=== PATIENT | female | born 1995 | race Two or more races ===

== ENCOUNTER 2016-02-17 07:05 | Inpatient (IN) | payer OTHER ==
[2016-02-17] VITALS (23 sets, daily range): BP systolic 81–117; BP diastolic 45–76
[~2016-02-17] VITALS: Ht 167.6 cm; Wt 69.8 kg
[~2016-02-17 07:05] MED LIST: AMOXICILLIN500 M1 PO; DEPO-PROVER150 MG/ML IM; ENDOCET 5-3251 EACH PO; FIORICET 50-301 EACH PO; FLEXERIL10 MG PO; HYDROCODON-ACE1 EAC7 PO; IBUPROFEN800 MG PO; MOTRIN800 MG PO; NAPROSYN500 MG PO; NOHOMEMEDS; PERCOCET 5/31 TABLET PO; PRENATAL TABLE1 EAC3 PO; PROCARDIA XL30 MG PO; PROCARDIA10 MG PO; PROGESTERONE200 MG VG; TORADOL10 MG PO; ZOFRAN4 MG PO
[2016-02-17 09:14] LABS: EOSINOPHIL (%) 0.3 % (0-5); HEMATOCRIT 30.9 % (36.0-46.0); IMMATURE GRANULOCYTE (%) 0.3 % (0.0-0.7); MCV 84.4 FL (83-99); MEAN PLAT.VOLUME 9.8 uM^3 (9.5-12.4); MONOCYTE (%) 6.5 % (3-12); MONOCYTE COUNT 0.6 K/uL (0-0.8); NEUTROPHIL (%) 69.7 % (45-76); PLATELET COUNT 192 K/uL (156-360); RBC DIS.WIDTH-CV 13.1 % (11.8-14.6); RED BLOOD COUNT 3.66 M/uL (3.80-5.20); WHITE BLOOD COUNT 8.7 K/uL (4.1-10.2)
[2016-02-17 13:06] LABS: METH RESISTANT S AUREUS PCR NEGATIVE (NEGATIVE)
[2016-02-17 13:08] LABS: PROBE CHECK PASS; SPECIMEN PROCESSING CONTROL PASS
[2016-02-17 13:46] LABS: AMPHETAMINES QUANT VALUE 0 NG/ML; BARBITUATES QUANT VALUE 0 NG/ML; BENZODIAZEPINES QUANT VALUE 0 NG/ML; BENZODIAZEPINES, URINE SCREEN Negative (200 ng/mL); OPIATES QUANTITATIVE VALUE 0 NG/ML; PHENCYCLIDINE QUANT VALUE 0 NG/ML
[2016-02-18] VITALS (21 sets, daily range): BP systolic 87–118; BP diastolic 51–73
[2016-02-18] MEDS ORDERED: IBUPROFEN800 MG PO (13:28)
[2016-02-19 07:18] VITALS: BP 118/61
[2016-02-20 07:37] VITALS: BP 113/81
== END 2016-02-20 15:16 | disposition home or self-care (01) | DRG 775 ==
LOC: LDRP-OP 07:05 → 2WEST 07:06 → LDRP-OP 04-11 11:43
PROVIDERS: Obstetrics & Gynecology
PROC: 10E0XZZ Delivery of Products of Conception, External Approach (ICD-10-PCS; principal; 2016-02-18)
PROC: 10907ZC Drainage of Amniotic Fluid, Therapeutic from Products of Conception, Via Natural or Artificial Opening (ICD-10-PCS; principal; 2016-02-18)
PROC: 00HU33Z Insertion of Infusion Device into Spinal Canal, Percutaneous Approach (ICD-10-PCS; principal; 2016-02-18)
PROC: 3E0X3CZ (ICD-10-PCS; principal; 2016-02-18)
DX: O60.14X0 Preterm labor third trimester with preterm delivery third trimester, not applicable or unspecified (principal); O99.324 Drug use complicating childbirth; O63.9 Long labor, unspecified; O99.02 Anemia complicating childbirth; F12.90 Cannabis use, unspecified, uncomplicated; D50.9 Iron deficiency anemia, unspecified; Z3A.36 36 weeks gestation of pregnancy; Z37.0 Single live birth
CPT/HCPCS: 85025; 87641; C1755; G0378; J0290; J3010; J7050; J7120

== ENCOUNTER 2016-03-04 02:21 | Emergency (ER) | payer OTHER ==
[~2016-03-04] VITALS: Ht 167.6 cm; Wt 61.0 kg
[2016-03-04 02:39] LABS: ADD MIUA? YES; BILIRUBIN NEGATIVE; BLOOD LARGE; COLOR YELLOW ((YELLOW)); GLUCOSE (STRIP) NEGATIVE; KETONES NEGATIVE; LEUKOCYTES SMALL; NITRITE NEGATIVE; PROTEIN (STRIP) >=300; SPECIFIC GRAVITY 1.027 (1.000-1.030); UROBILINOGEN 0.2 MG/DL (0.2-1.0)
[2016-03-04 02:48] LABS: HEMATOCRIT 37.6 % (36.0-46.0); MCH 26.6 PG (29.0-34.0); MCHC 32.4 G/DL (30.0-36.0); MCV 82.1 FL (83-99); MEAN PLAT.VOLUME 9.7 uM^3 (9.5-12.4); PLATELET COUNT 302 K/uL (156-360); RBC DIS.WIDTH-CV 13.3 % (11.8-14.6); RED BLOOD COUNT 4.58 M/uL (3.80-5.20); WHITE BLOOD COUNT 6.4 K/uL (4.1-10.2)
[2016-03-04 02:53] LABS: RED BLOOD CELLS 20-30 /HPF (0-5)
[2016-03-04 02:54] LABS: CHLORIDE 105 mEq/L (99-109); POTASSIUM 3.6 mEq/L (3.7-5.4); SODIUM 140 mEq/L (136-147)
[2016-03-04 02:54] LABS: BACTERIA 1+; CASTS NONE SEEN /LPF; CRYSTALS NONE SEEN; EPITHELIAL CELLS RARE; MUCUS RARE; UCUL ADDED? NO; WHITE BLOOD CELLS 30-40 /HPF (0-5)
[2016-03-04 02:56] LABS: GLUCOSE 90 mg/dL (70-99)
[2016-03-04 02:58] LABS: ANION GAP 10 MEQ/L (2-14); TOTAL BILIRUBIN 0.5 mg/dL (0.0-1.0)
[2016-03-04 03:00] LABS: ALKALINE PHOSPHATASE 108 IU/L (3-129); GFR ESTIMATE (CALCULATED) > 59 mL/min/
[2016-03-04 03:01] LABS: UREA NITROGEN (BUN) 20 mg/dL (9-23)
[2016-03-04 03:08] LABS: QUANTITATIVE HCG 5.3 MIU/ML
[2016-03-04] MEDS ORDERED: KEFLEX500 MG PO (03:30)
[2016-03-04] MEDS ORDERED: ZOFRAN4 MG PO (03:30)
[2016-03-04 03:38] VITALS: BP 110/71
== END 2016-03-04 03:38 | disposition home or self-care (01) ==
LOC: EME 02:21 → EXP 02:21
DX: N39.0 Urinary tract infection, site not specified (principal); Z87.440 Personal history of urinary (tract) infections
CPT/HCPCS: 80053; 81003; 84702; 85027; 99281; 99284

== ENCOUNTER 2016-03-04 17:43 | Emergency (ER) | payer OTHER ==
[~2016-03-04] VITALS: Ht 167.6 cm; Wt 60.5 kg
[~2016-03-04 17:43] MED LIST changes: +KEFLEX500 MG PO
[2016-03-04 18:08] LABS: HEMATOCRIT 37.8 % (36.0-46.0); MCH 26.2 PG (29.0-34.0); MEAN PLAT.VOLUME 9.8 uM^3 (9.5-12.4); PLATELET COUNT 285 K/uL (156-360); RBC DIS.WIDTH-CV 13.2 % (11.8-14.6); RBC DIS.WIDTH-SD 38.6 % (39-53); RED BLOOD COUNT 4.61 M/uL (3.80-5.20); WHITE BLOOD COUNT 7.2 K/uL (4.1-10.2)
[2016-03-04 18:18] LABS: CHLORIDE 105 mEq/L (99-109); POTASSIUM 3.8 mEq/L (3.7-5.4); SODIUM 140 mEq/L (136-147)
[2016-03-04 18:21] LABS: GLUCOSE 103 mg/dL (70-99)
[2016-03-04 18:22] LABS: ANION GAP 11 MEQ/L (2-14)
[2016-03-04 18:23] LABS: TOTAL BILIRUBIN 0.6 mg/dL (0.0-1.0)
[2016-03-04 18:24] LABS: ALKALINE PHOSPHATASE 113 IU/L (3-129); GFR ESTIMATE (CALCULATED) > 59 mL/min/
[2016-03-04 18:25] LABS: UREA NITROGEN (BUN) 15 mg/dL (9-23)
[2016-03-04 21:44] LABS: INTER. NORMALIZED RATIO 1.1; PROTHROMBIN TIME 11.4 (9.2-11.2); PTT 27.3 (25-32)
[2016-03-04 22:57] VITALS: BP 110/73
== END 2016-03-04 22:58 | disposition short-term general hospital (02) ==
LOC: EME 17:43
DX: I82.3 Embolism and thrombosis of renal vein (principal); N39.0 Urinary tract infection, site not specified; R11.2 Nausea with vomiting, unspecified
CPT/HCPCS: 74176; 74178; 80053; 81003; 84702; 85027; 85610; 85730; 99281; 99285; J0696; J1170; J1885; J2405; J7030; J7050

== ENCOUNTER 2016-06-14 02:46 | Emergency (ER) | payer OTHER ==
[~2016-06-14] VITALS: Ht 167.6 cm; Wt 58.5 kg
[2016-06-14 03:34] LABS: HEMATOCRIT 37.2 % (36.0-46.0); MCH 28.1 PG (29.0-34.0); MCHC 32.8 G/DL (30.0-36.0); MCV 85.7 FL (83-99); MEAN PLAT.VOLUME 10.1 uM^3 (9.5-12.4); PLATELET COUNT 261 K/uL (156-360); RBC DIS.WIDTH-CV 13.5 % (11.8-14.6); RED BLOOD COUNT 4.34 M/uL (3.80-5.20); WHITE BLOOD COUNT 7.6 K/uL (4.1-10.2)
[2016-06-14 04:01] LABS: CHLORIDE 105 mEq/L (99-109); INTER. NORMALIZED RATIO 1.2; POTASSIUM 5.6 mEq/L (3.7-5.4); PTT 25.2 (25-32); SODIUM 138 mEq/L (136-147)
[2016-06-14 04:02] LABS: ADD MIUA? YES; BILIRUBIN NEGATIVE; BLOOD NEGATIVE; COLOR YELLOW ((YELLOW)); GLUCOSE (STRIP) NEGATIVE; KETONES NEGATIVE; LEUKOCYTES NEGATIVE; NITRITE NEGATIVE; PROTEIN (STRIP) 30; SPECIFIC GRAVITY 1.027 (1.000-1.030); UROBILINOGEN 0.2 MG/DL (0.2-1.0)
[2016-06-14 04:03] LABS: GLUCOSE 81 mg/dL (70-99)
[2016-06-14 04:04] LABS: ANION GAP 10 MEQ/L (2-14)
[2016-06-14 04:05] LABS: TOTAL BILIRUBIN 0.3 mg/dL (0.0-1.0)
[2016-06-14 04:07] LABS: ALKALINE PHOSPHATASE 45 IU/L (3-129); GFR ESTIMATE (CALCULATED) > 59 mL/min/
[2016-06-14 04:08] LABS: UREA NITROGEN (BUN) 16 mg/dL (9-23)
[2016-06-14 04:10] LABS: LIPASE 53 U/L (1.0-51.0)
[2016-06-14 04:16] LABS: BACTERIA NONE SEEN /HPF; EPITHELIAL CELLS RARE /HPF; MUCUS 4+ /LPF; RED BLOOD CELLS 0-5 /HPF (0-5); UCUL ADDED? NO; WHITE BLOOD CELLS 0-5 /HPF (0-5)
[2016-06-14 04:16] LABS: QUANTITATIVE HCG < 4.0 MIU/ML
[2016-06-14] MEDS ORDERED: ZOFRAN8 MG PO (05:04)
[2016-06-14 05:20] VITALS: BP 105/69
== END 2016-06-14 05:41 | disposition home or self-care (01) ==
LOC: EME 02:46
PROVIDERS: Emergency Medicine
DX: R10.31 Right lower quadrant pain (principal); N83.02 Follicular cyst of left ovary
CPT/HCPCS: 74177; 80053; 81003; 83690; 84702; 85027; 85610; 85730; 99281; 99285; J2270; J2405; J7030

== ENCOUNTER 2016-08-04 13:20 | Emergency (ER) | payer OTHER ==
[~2016-08-04] VITALS: Ht 167.6 cm; Wt 58.9 kg
[~2016-08-04 13:20] MED LIST changes: +ZOFRAN8 MG PO
[2016-08-04 14:18] LABS: HEMATOCRIT 34.7 % (36.0-46.0); MCHC 32.6 G/DL (30.0-36.0); MCV 89.2 FL (83-99); MEAN PLAT.VOLUME 9.3 uM^3 (9.5-12.4); PLATELET COUNT 293 K/uL (156-360); RBC DIS.WIDTH-CV 12.6 % (11.8-14.6); RED BLOOD COUNT 3.89 M/uL (3.80-5.20); WHITE BLOOD COUNT 6.7 K/uL (4.1-10.2)
[2016-08-04 14:30] LABS: CHLORIDE 107 mEq/L (99-109); POTASSIUM 4.2 mEq/L (3.7-5.4); SODIUM 136 mEq/L (136-147)
[2016-08-04 14:32] LABS: GLUCOSE 67 mg/dL (70-99)
[2016-08-04 14:34] LABS: ANION GAP 5 MEQ/L (2-14); TOTAL BILIRUBIN 0.6 mg/dL (0.0-1.0)
[2016-08-04 14:36] LABS: ALKALINE PHOSPHATASE 42 IU/L (3-129); GFR ESTIMATE (CALCULATED) > 59 mL/min/
[2016-08-04 14:37] LABS: UREA NITROGEN (BUN) 13 mg/dL (9-23)
[2016-08-04 15:05] LABS: QUANTITATIVE HCG 38199.3 MIU/ML
[2016-08-04 17:45] LABS: ADD MIUA? YES; BILIRUBIN NEGATIVE; BLOOD NEGATIVE; COLOR YELLOW ((YELLOW)); GLUCOSE (STRIP) NEGATIVE; KETONES NEGATIVE; LEUKOCYTES NEGATIVE; NITRITE NEGATIVE; PROTEIN (STRIP) NEGATIVE; SPECIFIC GRAVITY 1.019 (1.000-1.030); UROBILINOGEN 0.2 MG/DL (0.2-1.0)
[2016-08-04 17:59] LABS: EPITHELIAL CELLS 1+ /HPF; MUCUS RARE /LPF; RED BLOOD CELLS NONE SEEN /HPF (0-5); WHITE BLOOD CELLS 0-5 /HPF (0-5)
[2016-08-04 18:00] LABS: AMORPHOUS PHOSPHATE CRYSTALS 2+; BACTERIA 1+ /HPF; CASTS NONE SEEN /LPF; CRYSTALS PRESENT; UCUL ADDED? NO
[2016-08-04 18:09] VITALS: BP 100/70
== END 2016-08-04 18:10 | disposition home or self-care (01) ==
LOC: EME 13:20
DX: O20.0 Threatened abortion (principal); Z3A.01 Less than 8 weeks gestation of pregnancy; J45.909 Unspecified asthma, uncomplicated; Z86.718 Personal history of other venous thrombosis and embolism
CPT/HCPCS: 76801; 80053; 81003; 84702; 85027; 99281; 99284

== ENCOUNTER 2016-12-09 18:00 | Outpatient (CLI) | payer OTHER ==
[~2016-12-09] VITALS: Ht 167.6 cm; Wt 66.2 kg
[2016-12-09 18:12] VITALS: BP 123/61
[2016-12-09 20:23] LABS: CANDIDA DNA PROBE NEGATIVE; GARDNERELLA DNA PROBE POSITIVE; INTERNAL CONTROL VALID? YES
[2016-12-09] MEDS ORDERED: FLAGYL500 MG PO (21:22)
[2016-12-10 13:10] LABS: CHLAMYDIA TRACHOMATIS NEGATIVE; NEISSERIA GONORRHOEAE NEGATIVE
== END 2016-12-09 21:25 | disposition home or self-care (01) ==
LOC: LDRP-OP 18:00 → 2WEST 18:02
PROVIDERS: Nurse Practitioner; Obstetrics & Gynecology
DX: O26.872 Cervical shortening, second trimester (principal); Z3A.24 24 weeks gestation of pregnancy
CPT/HCPCS: 59025; 82731; 87480; 87491; 87510; 87591; 87660; G0378

== ENCOUNTER 2017-01-14 18:35 | Outpatient (CLI) | payer OTHER ==
[~2017-01-14] VITALS: Ht 167.6 cm; Wt 62.0 kg
[~2017-01-14 18:35] MED LIST changes: +FLAGYL500 MG PO
[2017-01-14 19:03] VITALS: BP 103/61
[2017-01-14] MEDS ORDERED: LOVENOX60 MG/0.6 SC (19:27)
[2017-01-14] MEDS ORDERED: MAKENA250 MG/1 M IM (19:28)
[2017-01-14 21:50] VITALS: BP 109/59
[2017-01-14 22:51] LABS: CANDIDA DNA PROBE NEGATIVE; GARDNERELLA DNA PROBE POSITIVE; INTERNAL CONTROL VALID? YES
== END 2017-01-15 02:55 | disposition home or self-care (01) ==
LOC: LDRP-OP 18:35 → 2WEST 18:37
PROVIDERS: Advanced Practice Midwife
DX: O60.03 Preterm labor without delivery, third trimester (principal); Z3A.29 29 weeks gestation of pregnancy
CPT/HCPCS: 59025; 76805; 76815; 82731; 87480; 87510; 87660; G0378

== ENCOUNTER 2017-02-07 17:24 | Outpatient (CLI) | payer OTHER ==
[~2017-02-07] VITALS: Ht 167.6 cm; Wt 68.9 kg
[~2017-02-07 17:24] MED LIST changes: +LOVENOX60 MG/0.6 SC; +MAKENA250 MG/1 M IM
[2017-02-07 17:33] VITALS: BP 109/68
[2017-02-07] MEDS ORDERED: PRENATAL TABLE1 EACH PO (17:38)
[2017-02-07] MEDS ORDERED: TUMS SMOOTHIES300 MG PO (17:39)
[2017-02-07] MEDS ORDERED: BENADRYL25 MG PO (17:40)
[2017-02-07 17:46] VITALS: BP 107/61
== END 2017-02-07 18:54 | disposition home or self-care (01) ==
LOC: LDRP-OP 17:24 → 2WEST 17:25 → LDRP-OP 04-11 03:18
DX: O26.893 Other specified pregnancy related conditions, third trimester (principal); Z3A.33 33 weeks gestation of pregnancy; Z86.718 Personal history of other venous thrombosis and embolism
CPT/HCPCS: 59025; G0378

== ENCOUNTER 2017-03-02 09:38 | Inpatient (IN) | payer OTHER ==
[~2017-03-02] VITALS: Ht 167.6 cm; Wt 69.9 kg
[2017-03-02] VITALS (15 sets, daily range): BP systolic 90–122; BP diastolic 53–82
[~2017-03-02 09:38] MED LIST changes: +BENADRYL25 MG PO; +PRENATAL TABLE1 EACH PO; +TUMS SMOOTHIES300 MG PO
[2017-03-02] MEDS ORDERED: ALKA-SELTZER G1 EAC1 PO (10:40)
[2017-03-02] MEDS ORDERED: TYLENOL PM EX-1 EACH PO (10:41)
[2017-03-02 11:09] LABS: BASOPHIL (%) 0.5 % (0-1); EOSINOPHIL (%) 4.4 % (0-5); EOSINOPHIL COUNT 0.4 K/uL (0-0.3); HEMATOCRIT 31.5 % (36.0-46.0); HEMOGLOBIN 9.9 G/DL (11.9-15.5); IMMATURE GRANULOCYTE (%) 0.4 % (0.0-0.7); LYMPHOCYTE (%) 21.4 % (15-42); LYMPHOCYTE COUNT 1.7 K/uL (1.0-2.8); MCH 25.4 PG (29.0-34.0); MCHC 31.4 G/DL (30.0-36.0); MCV 80.8 FL (83-99); MONOCYTE (%) 6.9 % (3-12); MONOCYTE COUNT 0.6 K/uL (0-0.8); NEUTROPHIL (%) 66.4 % (45-76); NEUTROPHIL COUNT 5.3 K/uL (1.8-6.4); PLATELET COUNT 284 K/uL (156-360); RBC DIS.WIDTH-CV 14.1 % (11.8-14.6); RBC DIS.WIDTH-SD 41.1 % (39-53); WHITE BLOOD COUNT 7.9 K/uL (4.1-10.2)
[2017-03-02 18:47] LABS: BASOPHIL (%) 0.2 % (0-1); EOSINOPHIL (%) 0 % (0-5); HEMATOCRIT 25.2 % (36.0-46.0); IMMATURE GRANULOCYTE (%) 0.6 % (0.0-0.7); LYMPHOCYTE COUNT 0.6 K/uL (1.0-2.8); MCH 25.8 PG (29.0-34.0); MCV 83.4 FL (83-99); MONOCYTE (%) 1.2 % (3-12); MONOCYTE COUNT 0.1 K/uL (0-0.8); NEUTROPHIL COUNT 5.7 K/uL (1.8-6.4); PLATELET COUNT 204 K/uL (156-360); RBC DIS.WIDTH-CV 14.3 % (11.8-14.6); RBC DIS.WIDTH-SD 43.5 % (39-53); WHITE BLOOD COUNT 6.4 K/uL (4.1-10.2)
[2017-03-02 18:50] LABS: HEMOGLOBIN 7.8 G/DL (11.9-15.5); RED BLOOD COUNT 3.02 M/uL (3.80-5.20)
[2017-03-02 18:51] LABS: INTER. NORMALIZED RATIO 1.2
[2017-03-02 18:53] LABS: PTT 27.1 SEC (25-37)
[2017-03-03 06:38] LABS: BASOPHIL (%) 0.2 % (0-1); EOSINOPHIL (%) 0.1 % (0-5); HEMATOCRIT 27.3 % (36.0-46.0); HEMOGLOBIN 8.7 G/DL (11.9-15.5); IMMATURE GRANULOCYTE (%) 0.7 % (0.0-0.7); LYMPHOCYTE (%) 8.6 % (15-42); LYMPHOCYTE COUNT 1.6 K/uL (1.0-2.8); MCHC 31.9 G/DL (30.0-36.0); MCV 81.7 FL (83-99); MONOCYTE COUNT 1.1 K/uL (0-0.8); NEUTROPHIL (%) 84.4 % (45-76); PLATELET COUNT 247 K/uL (156-360); RBC DIS.WIDTH-CV 14.2 % (11.8-14.6); RED BLOOD COUNT 3.34 M/uL (3.80-5.20); WHITE BLOOD COUNT 18.9 K/uL (4.1-10.2)
[2017-03-03 07:38] VITALS: BP 106/64
[2017-03-03 14:32] VITALS: BP 105/55
[2017-03-03 16:02] LABS: APPEARANCE SL.HAZY ((CLEAR)); BILIRUBIN NEGATIVE; BLOOD MODERATE; COLOR YELLOW ((YELLOW)); GLUCOSE (STRIP) 50; KETONES NEGATIVE; LEUKOCYTES NEGATIVE; NITRITE NEGATIVE; PROTEIN (STRIP) 30; SPECIFIC GRAVITY 1.021 (1.000-1.030); UROBILINOGEN 0.2 MG/DL (0.2-1.0)
[2017-03-03 16:21] LABS: COCAINE NEGATIVE (150 ng/mL); METHAMPHETAMINE NEGATIVE (500 ng/mL); OPIATES (MORPHINE) NEGATIVE (100 ng/mL); PHENCYCLIDINE NEGATIVE (25 ng/mL); THC CANNABINOIDS NEGATIVE (50 ng/mL)
[2017-03-03 16:22] LABS: AMPHETAMINE NEGATIVE (500 ng/mL); BARBITURATES NEGATIVE (200 ng/mL); BENZODIAZEPINES NEGATIVE (150 ng/mL); BUPRENORPHINE NEGATIVE (10 ng/mL); METHADONE NEGATIVE (200 ng/mL); OXYCODONE NEGATIVE (100 ng/mL); PROPOXYPHENE NEGATIVE (300 ng/mL); TRICYCLIC ANTIDEPRESSANTS NEGATIVE (300 ng/mL)
[2017-03-03 19:05] LABS: RED BLOOD CELLS 30-40 /HPF (0-5)
[2017-03-03 19:06] LABS: WHITE BLOOD CELLS 0-5 /HPF (0-5)
[2017-03-03 19:07] LABS: AMORPHOUS URATES CRYSTALS 1+; BACTERIA 1+ /HPF; EPITHELIAL CELLS RARE /HPF; MUCUS 1+ /LPF; UCUL ADDED? NO
[2017-03-03 19:08] LABS: HYALINE CASTS 0-5 /LPF
[2017-03-03 21:00] LABS: MCH 26.1 PG (29.0-34.0); MCV 81.7 FL (83-99); RBC DIS.WIDTH-SD 41.9 % (39-53); RED BLOOD COUNT 3.06 M/uL (3.80-5.20); WHITE BLOOD COUNT 12.7 K/uL (4.1-10.2)
[2017-03-03 21:01] LABS: BASOPHIL (%) 0.2 % (0-1); EOSINOPHIL (%) 0.8 % (0-5); EOSINOPHIL COUNT 0.1 K/uL (0-0.3); IMMATURE GRANULOCYTE (%) 0.6 % (0.0-0.7); LYMPHOCYTE (%) 19.9 % (15-42); LYMPHOCYTE COUNT 2.5 K/uL (1.0-2.8); MONOCYTE (%) 6.1 % (3-12); MONOCYTE COUNT 0.8 K/uL (0-0.8); NEUTROPHIL (%) 72.4 % (45-76); NEUTROPHIL COUNT 9.2 K/uL (1.8-6.4); PLATELET COUNT 226 K/uL (156-360); RBC DIS.WIDTH-CV 14.1 % (11.8-14.6)
[2017-03-03 21:10] LABS: ALBUMIN 2.5 G/DL (3.2-4.8); CHLORIDE 107 MEQ/L (99-109); POTASSIUM 3.8 MEQ/L (3.7-5.4); SODIUM 137 MEQ/L (136-147); TOTAL BILIRUBIN 0.2 MG/DL (0.0-1.0)
[2017-03-03 21:15] LABS: ALKALINE PHOSPHATASE 93 IU/L (3-129); ALT (GPT) 8 IU/L (3-49); AST (GOT) 11 IU/L (2-34); CREATININE 0.6 MG/DL (0.6-1.3); GFR ESTIMATE (CALCULATED) > 59 mL/min/; GLUCOSE 83 mg/dL (70-99); TOTAL PROTEIN 5.2 G/DL (6.4-8.3); UREA NITROGEN (BUN) 9 mg/dL (9-23)
[2017-03-04 07:12] VITALS: BP 107/77
[2017-03-04] MEDS ORDERED: LOVENOX40 MG/0.4 SC (10:01)
[2017-03-04 12:47] LABS: APPEARANCE CLEAR ((CLEAR)); BILIRUBIN NEGATIVE; BLOOD MODERATE; COLOR STRAW ((YELLOW)); GLUCOSE (STRIP) NEGATIVE; KETONES NEGATIVE; LEUKOCYTES NEGATIVE; NITRITE NEGATIVE; PROTEIN (STRIP) NEGATIVE; UROBILINOGEN 0.2 MG/DL (0.2-1.0)
[2017-03-04 12:53] LABS: SPECIFIC GRAVITY 1.063 (1.000-1.030)
[2017-03-04 13:00] LABS: BACTERIA NONE SEEN /HPF; EPITHELIAL CELLS RARE /HPF; MUCUS NONE SEEN /LPF; UCUL ADDED? NO; WHITE BLOOD CELLS 0-5 /HPF (0-5)
== END 2017-03-04 14:25 | disposition home or self-care (01) | DRG 767 ==
LOC: LDRP-OP 09:38 → 2WEST 09:40 → LDRP-OP 04-11 20:12
PROVIDERS: Midwife; Obstetrics & Gynecology
PROC: 10907ZC Drainage of Amniotic Fluid, Therapeutic from Products of Conception, Via Natural or Artificial Opening (ICD-10-PCS; principal; 2017-03-02)
PROC: 10D17Z9 Manual Extraction of Products of Conception, Retained, Via Natural or Artificial Opening (ICD-10-PCS; principal; 2017-03-02)
PROC: 10E0XZZ Delivery of Products of Conception, External Approach (ICD-10-PCS; principal; 2017-03-02)
DX: O60.14X0 Preterm labor third trimester with preterm delivery third trimester, not applicable or unspecified (principal); O73.0 Retained placenta without hemorrhage; O99.12 Other diseases of the blood and blood-forming organs and certain disorders involving the immune mechanism complicating childbirth; D68.59 Other primary thrombophilia; Z3A.36 36 weeks gestation of pregnancy; Z37.0 Single live birth; Z86.718 Personal history of other venous thrombosis and embolism
CPT/HCPCS: 74177; 80053; 81003; 85025; 85025 91; 85520; 85610; 85730; 87086; C1755; J0595; J0702; J1650; J2540; J7120

== ENCOUNTER 2017-06-05 02:38 | Emergency (ER) | payer OTHER ==
[~2017-06-05] VITALS: Ht 167.6 cm; Wt 55.0 kg
[~2017-06-05 02:38] MED LIST changes: +ALKA-SELTZER G1 EAC1 PO; +LOVENOX40 MG/0.4 SC; +TYLENOL PM EX-1 EACH PO
[2017-06-05 03:45] LABS: HEMATOCRIT 33.4 % (36.0-46.0); HEMOGLOBIN 10.8 G/DL (11.9-15.5); MCH 27.8 PG (29.0-34.0); MCHC 32.3 G/DL (30.0-36.0); MCV 86.1 FL (83-99); PLATELET COUNT 249 K/uL (156-360); RBC DIS.WIDTH-CV 15.1 % (11.8-14.6); RED BLOOD COUNT 3.88 M/uL (3.80-5.20); WHITE BLOOD COUNT 4.4 K/uL (4.1-10.2)
[2017-06-05 03:56] LABS: CHLORIDE 109 mEq/L (99-109); POTASSIUM 3.7 mEq/L (3.7-5.4); SODIUM 142 mEq/L (136-147)
[2017-06-05 03:58] LABS: GLUCOSE 87 mg/dL (70-99); TOTAL PROTEIN 6.4 g/dL (6.4-8.3)
[2017-06-05 04:00] LABS: TOTAL BILIRUBIN 0.3 mg/dL (0.0-1.0)
[2017-06-05 04:01] LABS: ALKALINE PHOSPHATASE 43 IU/L (3-129)
[2017-06-05 04:02] LABS: CREATININE 0.8 mg/dL (0.6-1.3); GFR ESTIMATE (CALCULATED) > 59 mL/min/
[2017-06-05 04:03] LABS: AST (GOT) 10 IU/L (2-34); UREA NITROGEN (BUN) 16 mg/dL (9-23)
[2017-06-05 04:04] LABS: ALT (GPT) 6 IU/L (3-49)
[2017-06-05 04:11] LABS: QUANTITATIVE HCG < 4.0 MIU/ML
[2017-06-05 04:34] LABS: SERUM ETHYL ALCOHOL < 10 mg/dL
[2017-06-05 04:37] LABS: ACETAMINOPHEN (TYLENOL) < 10 mcg/mL (10-30); SALICYLATE < 5.0 MG/DL (15-30)
[2017-06-05 05:42] LABS: APPEARANCE SL.HAZY ((CLEAR)); BILIRUBIN NEGATIVE; BLOOD NEGATIVE; COLOR YELLOW ((YELLOW)); GLUCOSE (STRIP) NEGATIVE; KETONES NEGATIVE; LEUKOCYTES NEGATIVE; NITRITE NEGATIVE; PROTEIN (STRIP) NEGATIVE; SPECIFIC GRAVITY 1.019 (1.000-1.030); UROBILINOGEN 0.2 MG/DL (0.2-1.0)
[2017-06-05 05:47] LABS: BACTERIA NONE SEEN /HPF; EPITHELIAL CELLS RARE /HPF; MUCUS TRACE /LPF; RED BLOOD CELLS 0-5 /HPF (0-5); UCUL ADDED? NO; WHITE BLOOD CELLS 0-5 /HPF (0-5)
[2017-06-05 05:51] LABS: AMPHETAMINE NEGATIVE (500 ng/mL); BARBITURATES NEGATIVE (200 ng/mL); BENZODIAZEPINES NEGATIVE (150 ng/mL); BUPRENORPHINE NEGATIVE (10 ng/mL); COCAINE NEGATIVE (150 ng/mL); METHADONE NEGATIVE (200 ng/mL); METHAMPHETAMINE NEGATIVE (500 ng/mL); OPIATES (MORPHINE) NEGATIVE (100 ng/mL); OXYCODONE NEGATIVE (100 ng/mL); PHENCYCLIDINE NEGATIVE (25 ng/mL); PROPOXYPHENE NEGATIVE (300 ng/mL); THC CANNABINOIDS NEGATIVE (50 ng/mL); TRICYCLIC ANTIDEPRESSANTS NEGATIVE (300 ng/mL)
[2017-06-05 06:21] VITALS: BP 114/82
== END 2017-06-05 06:21 | disposition home or self-care (01) ==
LOC: EME 02:38
PROVIDERS: Emergency Medicine
DX: R41.82 Altered mental status, unspecified (principal); J45.909 Unspecified asthma, uncomplicated; Z87.440 Personal history of urinary (tract) infections; Z86.718 Personal history of other venous thrombosis and embolism
CPT/HCPCS: 80053; 81003; 84702; 85027; 99281; 99284; G0480; J7030

== ENCOUNTER 2017-07-03 00:12 | Emergency (ER) | payer OTHER ==
[~2017-07-03] VITALS: Ht 167.6 cm; Wt 57.2 kg
[2017-07-03 00:35] LABS: HEMATOCRIT 36.6 % (36.0-46.0); MCH 29.3 PG (29.0-34.0); MCHC 32.8 G/DL (30.0-36.0); MCV 89.5 FL (83-99); PLATELET COUNT 249 K/uL (156-360); RBC DIS.WIDTH-CV 14.6 % (11.8-14.6); RBC DIS.WIDTH-SD 47.9 % (39-53); RED BLOOD COUNT 4.09 M/uL (3.80-5.20); WHITE BLOOD COUNT 10.4 K/uL (4.1-10.2)
[2017-07-03 00:44] LABS: CHLORIDE 110 mEq/L (99-109); POTASSIUM 3.9 mEq/L (3.7-5.4); SODIUM 141 mEq/L (136-147)
[2017-07-03 00:46] LABS: GLUCOSE 80 mg/dL (70-99)
[2017-07-03 00:50] LABS: CREATININE 0.8 mg/dL (0.6-1.3); GFR ESTIMATE (CALCULATED) > 59 mL/min/; UREA NITROGEN (BUN) 16 mg/dL (9-23)
[2017-07-03 00:58] LABS: QUANTITATIVE HCG < 4.0 MIU/ML
[2017-07-03 01:40] LABS: APPEARANCE CLOUDY ((CLEAR)); BILIRUBIN NEGATIVE; BLOOD SMALL; COLOR YELLOW ((YELLOW)); GLUCOSE (STRIP) NEGATIVE; KETONES NEGATIVE; LEUKOCYTES LARGE; NITRITE NEGATIVE; PROTEIN (STRIP) 100; SPECIFIC GRAVITY 1.013 (1.000-1.030); UROBILINOGEN 0.2 MG/DL (0.2-1.0)
[2017-07-03 01:53] LABS: BACTERIA NONE SEEN /HPF; EPITHELIAL CELLS NONE SEEN /HPF; MUCUS TRACE /LPF; UCUL ADDED? YES; WHITE BLOOD CELLS TNTC /HPF (0-5)
[2017-07-03] MEDS ORDERED: KEFLEX500 MG PO (03:05)
[2017-07-03] MEDS ORDERED: PYRIDIUM200 MG PO (03:05)
[2017-07-03 03:30] VITALS: BP 102/61
== END 2017-07-03 03:31 | disposition home or self-care (01) ==
LOC: EME 00:12
DX: N12 Tubulo-interstitial nephritis, not specified as acute or chronic (principal); B96.20 Unspecified Escherichia coli [E. coli] as the cause of diseases classified elsewhere; Z16.11 Resistance to penicillins; J45.909 Unspecified asthma, uncomplicated; Z87.440 Personal history of urinary (tract) infections; Z86.718 Personal history of other venous thrombosis and embolism
CPT/HCPCS: 74176; 80048; 81003; 84702; 85027; 87077; 87086; 87186; 99281; 99284; J1885